=== PATIENT | male | born 1975 | race Two or more races ===

== ENCOUNTER → 2024-08-20 | Outpatient (CLI) | payer MEDICAID, SELFPAY ==
--- NOTE | 2024-08-20 13:00 | XR_ITS ---
Examination: CT chest, without intravenous contrast. Sagittal and coronal 2-D reconstructions. Exam date and time: August 20, 2024 1312 hours INDICATIONS: 3 mm soft pulmonary nodule right lower lobe on CT abdomen study June 04, 2019 CTDI:vol (mGy) 17.8 DLP: (mGycm) 673 Technique: Multiple 3.0 mm axial sections of the chest to been obtained. Bone and lung density settings are obtained. Sagittal and coronal 2-D reconstructions have been obtained. Low dose protocols were performed. One or more of the following dose reduction techniques were used; automated exposure control, adjustment of the mA and/or KV according to patient size, use of iterative reconstruction technique. Findings: No thoracic degenerative aneurysm dilatation Pulmonary artery segments are not enlarged. No paratracheal tracheobronchial or bronchopulmonary adenopathy 2 mm pulmonary nodule right midlung image 136 3 mm soft pulmonary nodule right upper lobe image 140 3 mm pulmonary nodule right lower lobe image 168 No lobar pneumonia or pulmonary edema No pleural disease No visualized liver or splenic lesion No gallstones No pancreatic mass Kidneys partially visualized no hydronephrosis Mild osteopenia IMPRESSION: Noncalcified pulmonary nodules as above, with this study as baseline recommend 6 month follow-up CT chest without contrast
== END | disposition home or self-care (01) ==
PROVIDERS: PCP Nurse Practitioner Family; Referring Provider Nurse Practitioner Family; Visit Provider Nurse Practitioner Family
DX: R91.8 Other nonspecific abnormal finding of lung field (principal)
CPT/HCPCS: 71271

== ENCOUNTER → 2025-02-26 | Outpatient (CLI) | payer MEDICAID, SELFPAY ==
--- NOTE | 2025-02-26 07:30 | XR_ITS ---
Examination: CT chest, without intravenous contrast. Sagittal and coronal 2-D reconstructions. Exam date and time: February 26, 2025, 0752 hours, comparison August 20, 2024 INDICATIONS: Coughing 4 days, CT chest August 20, 2024 2 mm pulmonary nodule right midlung 3 mm pulmonary nodule right upper lobe 3 mm pulmonary nodule right lower lobe CTDI:vol (mGy) 13.6 DLP: (mGycm) 492 Technique: Multiple 3.0 mm axial sections of the chest to been obtained. Bone and lung density settings are obtained. Sagittal and coronal 2-D reconstructions have been obtained. Low dose protocols were performed. One or more of the following dose reduction techniques were used; automated exposure control, adjustment of the mA and/or KV according to patient size, use of iterative reconstruction technique. Findings: No thoracic aortic aneurysm dilatation Pulmonary artery segments are not enlarged. No interval paratracheal tracheobronchial or bronchopulmonary adenopathy. Stable right lung pulmonary nodules No new pulmonary nodules No pneumonia or pulmonary edema No visualized liver or splenic lesion No gallstones No pancreatic mass IMPRESSION: Stable pulmonary nodules compared with August 20, 2024, no new pulmonary nodules
== END | disposition home or self-care (01) ==
LOC: CCTX 07:18
PROVIDERS: Referring Provider Nurse Practitioner Family; Visit Provider Nurse Practitioner Family
DX: R91.8 Other nonspecific abnormal finding of lung field (principal)
CPT/HCPCS: 71250